=== PATIENT | male | born 1970 | race Two or more races ===

== ENCOUNTER 2020-04-16 20:02 | Inpatient (IN) | payer MEDICAID, OTHER, SELFPAY ==
[~2020-04-16] VITALS: Ht 167.6 cm; Wt 87.9 kg
[2020-04-17 00:29] LABS: Basophils # (auto) 0 10 ^3/uL (0-0.2); Basophils % (auto) 0.2 % (0.0-2.0); Eosinophils # (auto) 0 10 ^3/uL (0-0.8); Eosinophils % (auto) 0.1 % (0.0-7.0); Hematocrit 45.4 % (41.0-53.0); Hemoglobin 15.7 g/dL (13.5-17.5); Lymphocytes # (auto) 1.2 10 ^3/uL (0.4-5.4); Lymphocytes % (auto) 10.4 % (10.0-50.0); Mean Corpuscular Hemoglobin 30.7 pg (28.0-32.0); Mean Corpuscular Hgb Conc. 34.6 g/dL (32.0-36.0); Mean Corpuscular Volume 88.7 fL (80.0-100.0); Monocytes # (auto) 0.6 10 ^3/uL (0-1.3); Monocytes % (auto) 5.2 % (0.0-12.0); Neutrophils # (auto) 9.9 10 ^3/uL (1.6-8.6); Neutrophils % (auto) 84.1 % (37.0-80.0); Nucleated Red Blood Cells % 0.1 %; Red Blood Cells 5.12 10^6/uL (4.5-5.90); White Blood Cell 11.7 10^3/uL (4.4-10.8)
[2020-04-17 00:38] LABS: Alanine Aminotransferase 47 U/L (16-61); Albumin 3.2 g/dL (3.4-5.0); Anion Gap 7 (5-15); Aspartate Aminotransferase 50 U/L (15-37); BUN/Creatinine Ratio 15.9; Blood Urea Nitrogen 14 mg/dL (7-18); Calcium 8.3 mg/dL (8.5-10.1); Carbon Dioxide 28 mmol/L (21-32); Chloride 100 mmol/L (98-107); GFR African American 118 mL/min; GFR Non-African American 97 mL/min; Glucose 118 mg/dL (74-106); Potassium 3.7 mmol/L (3.5-5.1); Sodium 135 mmol/L (136-145)
[2020-04-17 00:43] LABS: Alkaline Phosphatase 96 U/L (45-117); Bilirubin, Total 0.6 mg/dL (0.2-1.0); Total Protein 8.3 g/dL (6.4-8.2)
[2020-04-17 00:44] LABS: INR 1.15 (0.9-1.15); Partial Thromboplastin Time 27.8 sec (23.0-31.2)
[2020-04-17] MEDS ORDERED: levoFLOXacin 750MG 150 ML IV ONE (04:15)
[2020-04-17] MEDS ORDERED: SODIUM CHLORIDE 0.9% 1,000 ML IV SCH (05:15)
[2020-04-17] MEDS ORDERED: ONDANSETRON HCL 4 MG/2 ML VIAL IV PRN (05:15)
[2020-04-17] MEDS ORDERED: ACETAMINOPHEN 500 MG TAB PO PRN (05:15)
[2020-04-17] MEDS ORDERED: HYDROcodone-ACET 5/325MG TAB PO PRN (05:15)
[2020-04-17] MEDS ORDERED: DOCUSATE SOD 100 MG CAP PO PRN (05:15)
[2020-04-17] MEDS ORDERED: ACETAMINOPHEN 325 MG TAB PO PRN (05:15)
[2020-04-17] MEDS: ALBUTEROL SULF HFA 90MCG INH 200DOSE IN SCH ×3 (06:00→15:29)
[2020-04-17] MEDS: ASCORBIC ACID 1,000 MG TAB PO SCH (09:11)
[2020-04-17] MEDS: ZINC SULFATE 220mg CAP or TAB PO SCH (09:12)
[2020-04-17] MEDS: DOXYCYCLINE 100 MG TAB/CAP PO SCH ×2 (09:12→21:43)
[2020-04-17] MEDS ORDERED: ENOXAPARIN SOD 40 MG/0.4 ML SYRINGE SC SCH (10:00)
[2020-04-17] MEDS ORDERED: REMDESIVIR PER PHARMACY 0 ML IV SCH (14:30)
[2020-04-17 15:45] LABS: CRP High Sensitivity 9.4 mg/dL (< 0.3)
[2020-04-17 18:02] VITALS: BP 114/77
[2020-04-17] MEDS: guaiFENesin-DM 100/10mg/5ml SYR PO PRN (18:40)
[2020-04-17] MEDS ORDERED: REMDESIVIR 200 MG in NS 210ml LOADING DOSE ADULT IV ONE (20:00)
[2020-04-17 20:25] VITALS: BP 127/75
[2020-04-17 20:40] VITALS: BP 129/67
[2020-04-17] MEDS: ENOXAPARIN SOD 40 MG/0.4 ML SYRINGE SC SCH (21:45)
[2020-04-17 22:15] VITALS: BP 127/77
[2020-04-18] VITALS: BP 131/77
[2020-04-18] MEDS: ALBUTEROL SULF HFA 90MCG INH 200DOSE IN SCH ×3 (06:00→22:00)
[2020-04-18] MEDS: guaiFENesin-DM 100/10mg/5ml SYR PO PRN (06:03)
[2020-04-18 07:36] LABS: Basophils # (auto) 0 10 ^3/uL (0-0.2); Basophils % (auto) 0.4 % (0.0-2.0); Eosinophils # (auto) 0.1 10 ^3/uL (0-0.8); Eosinophils % (auto) 1.4 % (0.0-7.0); Hematocrit 38.7 % (41.0-53.0); Hemoglobin 13.3 g/dL (13.5-17.5); Lymphocytes # (auto) 0.9 10 ^3/uL (0.4-5.4); Lymphocytes % (auto) 9.1 % (10.0-50.0); Mean Corpuscular Hemoglobin 30.7 pg (28.0-32.0); Mean Corpuscular Hgb Conc. 34.5 g/dL (32.0-36.0); Mean Corpuscular Volume 88.9 fL (80.0-100.0); Monocytes # (auto) 0.6 10 ^3/uL (0-1.3); Monocytes % (auto) 5.8 % (0.0-12.0); Neutrophils # (auto) 8.1 10 ^3/uL (1.6-8.6); Neutrophils % (auto) 83.3 % (37.0-80.0); Nucleated Red Blood Cells % 0.1 %; Red Blood Cells 4.35 10^6/uL (4.5-5.90); Red Cell Distribution Width 13.5 % (11.8-14.3); White Blood Cell 9.7 10^3/uL (4.4-10.8)
[2020-04-18 07:49] LABS: Albumin 2.3 g/dL (3.4-5.0); Calcium 8.2 mg/dL (8.5-10.1); Potassium 3.3 mmol/L (3.5-5.1)
[2020-04-18 07:54] LABS: BUN/Creatinine Ratio 20.6; Bilirubin, Total 0.6 mg/dL (0.2-1.0); Total Protein 6.8 g/dL (6.4-8.2)
[2020-04-18 08:00] VITALS: BP 114/76
[2020-04-18] MEDS: BUDESONIDE (INHALATION) 180 MCG IH IN SCH ×2 (08:40→20:10)
[2020-04-18] MEDS: DexAMETHasone SOD PHOS 10MG/1ML VIAL INJ IV SCH (10:36)
[2020-04-18] MEDS: ZINC SULFATE 220mg CAP or TAB PO SCH (10:37)
[2020-04-18] MEDS: CHOLECALCIFEROL (VITD3) 2,000 UNIT CAP/TAB PO SCH (10:37)
[2020-04-18] MEDS: DOXYCYCLINE 100 MG TAB/CAP PO SCH ×2 (10:37→22:54)
[2020-04-18] MEDS: ASCORBIC ACID 1,000 MG TAB PO SCH (10:37)
[2020-04-18] MEDS: ENOXAPARIN SOD 40 MG/0.4 ML SYRINGE SC SCH ×2 (10:38→22:54)
[2020-04-18] MEDS ORDERED: POTASSIUM EFFERVESENT TAB 25 MEQ PO SCH (12:00)
[2020-04-18] MEDS: PROMETHAZINE W/CODEINE 5 ML ORAL SYRUP PO PRN ×2 (12:40→20:09)
[2020-04-18 16:00] VITALS: BP 116/80
[2020-04-18] MEDS: REMDESIVIR 100 MG in SODIUM CHL 0.9% 250 ML IV SCH (16:17)
[2020-04-18 17:29] VITALS: BP 119/62
[2020-04-19] VITALS: BP 118/76
[2020-04-19] MEDS: PROMETHAZINE W/CODEINE 5 ML ORAL SYRUP PO PRN ×2 (05:55→21:37)
[2020-04-19] MEDS: ALBUTEROL SULF HFA 90MCG INH 200DOSE IN SCH ×3 (05:58→19:48)
[2020-04-19 08:00] VITALS: BP 116/68
[2020-04-19 08:47] LABS: Albumin 2.4 g/dL (3.4-5.0); Calcium 8.6 mg/dL (8.5-10.1); Potassium 3.6 mmol/L (3.5-5.1)
[2020-04-19 08:52] LABS: BUN/Creatinine Ratio 28.3; Bilirubin, Total 0.4 mg/dL (0.2-1.0); Total Protein 6.8 g/dL (6.4-8.2)
[2020-04-19] MEDS ORDERED: POTASSIUM CHL 20 Meq TABLET PO ONE (09:45)
[2020-04-19] MEDS ORDERED: FUROSEMIDE 20 MG/2 ML VIAL IV ONE (09:45)
[2020-04-19] MEDS: COLCHICINE 0.6 MG CAP PO SCH (10:00)
[2020-04-19] MEDS: BUDESONIDE (INHALATION) 180 MCG IH IN SCH ×2 (10:00→19:48)
[2020-04-19] MEDS: ZINC SULFATE 220mg CAP or TAB PO SCH (10:00)
[2020-04-19] MEDS: ASCORBIC ACID 1,000 MG TAB PO SCH (10:00)
[2020-04-19] MEDS: CHOLECALCIFEROL (VITD3) 2,000 UNIT CAP/TAB PO SCH (10:00)
[2020-04-19] MEDS: DOXYCYCLINE 100 MG TAB/CAP PO SCH ×2 (10:00→21:37)
[2020-04-19] MEDS: DexAMETHasone SOD PHOS 10MG/1ML VIAL INJ IV SCH (10:31)
[2020-04-19] MEDS: ENOXAPARIN SOD 40 MG/0.4 ML SYRINGE SC SCH ×2 (10:31→21:37)
[2020-04-19] MEDS: REMDESIVIR 100 MG in SODIUM CHL 0.9% 250 ML IV SCH (15:39)
[2020-04-19 16:00] VITALS: BP 101/70
[2020-04-19 17:03] VITALS: BP 109/72
[2020-04-20] VITALS: BP 106/66
[2020-04-20] MEDS: ALBUTEROL SULF HFA 90MCG INH 200DOSE IN SCH ×3 (06:06→19:24)
[2020-04-20] MEDS: PROMETHAZINE W/CODEINE 5 ML ORAL SYRUP PO PRN ×2 (06:06→12:53)
[2020-04-20] MEDS: BUDESONIDE (INHALATION) 180 MCG IH IN SCH ×2 (07:40→19:24)
[2020-04-20 07:41] LABS: Eosinophils # (auto) 0 10 ^3/uL (0-0.8); Monocytes # (auto) 0.8 10 ^3/uL (0-1.3); White Blood Cell 13.2 10^3/uL (4.4-10.8)
[2020-04-20 07:44] LABS: Basophils # (auto) 0.1 10 ^3/uL (0-0.2); Basophils % (auto) 0.4 % (0.0-2.0); Eosinophils % (auto) 0.1 % (0.0-7.0); Hematocrit 39.8 % (41.0-53.0); Hemoglobin 13.4 g/dL (13.5-17.5); Lymphocytes # (auto) 1.2 10 ^3/uL (0.4-5.4); Lymphocytes % (auto) 8.7 % (10.0-50.0); Mean Corpuscular Hemoglobin 30.2 pg (28.0-32.0); Mean Corpuscular Hgb Conc. 33.7 g/dL (32.0-36.0); Mean Corpuscular Volume 89.7 fL (80.0-100.0); Monocytes % (auto) 6.1 % (0.0-12.0); Neutrophils # (auto) 11.2 10 ^3/uL (1.6-8.6); Neutrophils % (auto) 84.7 % (37.0-80.0); Red Blood Cells 4.44 10^6/uL (4.5-5.90); Red Cell Distribution Width 13.3 % (11.8-14.3)
[2020-04-20 07:57] LABS: Albumin 2.4 g/dL (3.4-5.0); Bilirubin, Total 0.4 mg/dL (0.2-1.0); Calcium 8.2 mg/dL (8.5-10.1); Magnesium 2.3 mg/dL (1.6-2.6); Potassium 3.8 mmol/L (3.5-5.1); Total Protein 6.8 g/dL (6.4-8.2)
[2020-04-20 08:00] VITALS: BP 111/74
[2020-04-20] MEDS: DexAMETHasone SOD PHOS 10MG/1ML VIAL INJ IV SCH (08:56)
[2020-04-20] MEDS: FUROSEMIDE 20 MG/2 ML VIAL IV SCH (08:56)
[2020-04-20] MEDS: ZINC SULFATE 220mg CAP or TAB PO SCH (08:57)
[2020-04-20] MEDS: COLCHICINE 0.6 MG CAP PO SCH (08:58)
[2020-04-20] MEDS: POTASSIUM EFFERVESENT TAB 25 MEQ PO SCH (08:58)
[2020-04-20] MEDS: DOXYCYCLINE 100 MG TAB/CAP PO SCH ×2 (08:59→22:00)
[2020-04-20] MEDS: ASCORBIC ACID 1,000 MG TAB PO SCH (08:59)
[2020-04-20] MEDS: CHOLECALCIFEROL (VITD3) 2,000 UNIT CAP/TAB PO SCH (09:00)
[2020-04-20] MEDS: ENOXAPARIN SOD 40 MG/0.4 ML SYRINGE SC SCH ×2 (09:01→22:00)
[2020-04-20] MEDS: REMDESIVIR 100 MG in SODIUM CHL 0.9% 250 ML IV SCH (14:51)
[2020-04-20 15:50] VITALS: BP 108/70
[2020-04-20 16:00] VITALS: BP 108/70
[2020-04-20] MEDS ORDERED: diphenhdrAMINE HCL 50 MG/1 ML VL IV PRN (20:15)
[2020-04-20] MEDS: FAMOTIDINE (10MG/ML) 2ML VL IV SCH (22:00)
[2020-04-20] MEDS ORDERED: cefTRIAXone 1GM/50ML D5W 50 ML IV ONE (22:30)
[2020-04-21 00:30] VITALS: BP 104/63
[2020-04-21] MEDS: ALBUTEROL SULF HFA 90MCG INH 200DOSE IN SCH ×3 (06:00→19:31)
[2020-04-21 06:59] LABS: Basophils # (auto) 0 10 ^3/uL (0-0.2); Basophils % (auto) 0.2 % (0.0-2.0); Eosinophils # (auto) 0 10 ^3/uL (0-0.8); Eosinophils % (auto) 0.2 % (0.0-7.0); Hemoglobin 13.7 g/dL (13.5-17.5); Mean Corpuscular Hemoglobin 30.4 pg (28.0-32.0); Monocytes # (auto) 0.9 10 ^3/uL (0-1.3); Neutrophils # (auto) 10.6 10 ^3/uL (1.6-8.6)
[2020-04-21 07:00] LABS: Hematocrit 40.3 % (41.0-53.0); Lymphocytes # (auto) 1.3 10 ^3/uL (0.4-5.4); Lymphocytes % (auto) 10.3 % (10.0-50.0); Mean Corpuscular Hgb Conc. 34.1 g/dL (32.0-36.0); Neutrophils % (auto) 82.3 % (37.0-80.0); Red Blood Cells 4.52 10^6/uL (4.5-5.90); Red Cell Distribution Width 13.5 % (11.8-14.3); White Blood Cell 12.9 10^3/uL (4.4-10.8)
[2020-04-21 07:36] LABS: Potassium 4.3 mmol/L (3.5-5.1)
[2020-04-21 07:54] LABS: Albumin 2.4 g/dL (3.4-5.0); Bilirubin, Total 0.3 mg/dL (0.2-1.0); CRP High Sensitivity 1.51 mg/dL (< 0.3); Calcium 8.5 mg/dL (8.5-10.1); Total Protein 6.7 g/dL (6.4-8.2)
[2020-04-21 08:00] VITALS: BP 108/70
[2020-04-21] MEDS: COLCHICINE 0.6 MG CAP PO SCH (09:39)
[2020-04-21] MEDS: ASCORBIC ACID 1,000 MG TAB PO SCH (09:39)
[2020-04-21] MEDS: POTASSIUM EFFERVESENT TAB 25 MEQ PO SCH (09:40)
[2020-04-21] MEDS: ZINC SULFATE 220mg CAP or TAB PO SCH (09:40)
[2020-04-21] MEDS: DOXYCYCLINE 100 MG TAB/CAP PO SCH ×2 (09:40→22:16)
[2020-04-21] MEDS: CHOLECALCIFEROL (VITD3) 2,000 UNIT CAP/TAB PO SCH (09:40)
[2020-04-21] MEDS: ENOXAPARIN SOD 40 MG/0.4 ML SYRINGE SC SCH ×2 (09:41→22:16)
[2020-04-21] MEDS: FAMOTIDINE (10MG/ML) 2ML VL IV SCH ×2 (09:42→22:16)
[2020-04-21] MEDS: DexAMETHasone SOD PHOS 10MG/1ML VIAL INJ IV SCH (09:42)
[2020-04-21] MEDS: PROMETHAZINE W/CODEINE 5 ML ORAL SYRUP PO PRN ×2 (09:48→20:24)
[2020-04-21] MEDS: FUROSEMIDE 20 MG/2 ML VIAL IV SCH (10:00)
[2020-04-21] MEDS: BUDESONIDE (INHALATION) 180 MCG IH IN SCH ×2 (10:00→19:31)
[2020-04-21] MEDS: REMDESIVIR 100 MG in SODIUM CHL 0.9% 250 ML IV SCH (14:50)
[2020-04-21 16:00] VITALS: BP 105/74
[2020-04-21] MEDS: cefTRIAXone 1GM/50ML D5W 50 ML IV SCH (20:23)
[2020-04-22] VITALS: BP 97/52
[2020-04-22] MEDS: PROMETHAZINE W/CODEINE 5 ML ORAL SYRUP PO PRN ×3 (05:14→21:26)
[2020-04-22] MEDS: ALBUTEROL SULF HFA 90MCG INH 200DOSE IN SCH ×3 (07:10→19:10)
[2020-04-22 07:44] LABS: Potassium 3.8 mmol/L (3.5-5.1)
[2020-04-22 07:53] LABS: Albumin 2.5 g/dL (3.4-5.0); BUN/Creatinine Ratio 34.5; Bilirubin, Total 0.3 mg/dL (0.2-1.0); Calcium 8.2 mg/dL (8.5-10.1); Total Protein 6.4 g/dL (6.4-8.2)
[2020-04-22 08:00] VITALS: BP 95/62
[2020-04-22] MEDS: FUROSEMIDE 20 MG/2 ML VIAL IV SCH (10:00)
[2020-04-22] MEDS: BUDESONIDE (INHALATION) 180 MCG IH IN SCH ×2 (11:22→19:10)
[2020-04-22] MEDS: FAMOTIDINE (10MG/ML) 2ML VL IV SCH ×2 (11:22→22:00)
[2020-04-22] MEDS: DexAMETHasone SOD PHOS 10MG/1ML VIAL INJ IV SCH (11:22)
[2020-04-22] MEDS: ZINC SULFATE 220mg CAP or TAB PO SCH (11:22)
[2020-04-22] MEDS: COLCHICINE 0.6 MG CAP PO SCH (11:23)
[2020-04-22] MEDS: POTASSIUM EFFERVESENT TAB 25 MEQ PO SCH (11:23)
[2020-04-22] MEDS: CHOLECALCIFEROL (VITD3) 2,000 UNIT CAP/TAB PO SCH (11:23)
[2020-04-22] MEDS: ASCORBIC ACID 1,000 MG TAB PO SCH (11:23)
[2020-04-22] MEDS: ENOXAPARIN SOD 40 MG/0.4 ML SYRINGE SC SCH ×2 (11:23→21:26)
[2020-04-22 16:00] VITALS: BP 99/52
[2020-04-22] MEDS: cefTRIAXone 1GM/50ML D5W 50 ML IV SCH (21:26)
[2020-04-23] VITALS: BP 112/71
[2020-04-23] MEDS: ALBUTEROL SULF HFA 90MCG INH 200DOSE IN SCH ×2 (06:25→14:00)
[2020-04-23] MEDS: BUDESONIDE (INHALATION) 180 MCG IH IN SCH (06:25)
[2020-04-23 08:00] VITALS: BP 102/66
[2020-04-23] MEDS: FAMOTIDINE (10MG/ML) 2ML VL IV SCH (10:00)
[2020-04-23] MEDS: ZINC SULFATE 220mg CAP or TAB PO SCH (10:22)
[2020-04-23] MEDS: DexAMETHasone SOD PHOS 10MG/1ML VIAL INJ IV SCH (10:22)
[2020-04-23] MEDS: POTASSIUM EFFERVESENT TAB 25 MEQ PO SCH (10:23)
[2020-04-23] MEDS: CHOLECALCIFEROL (VITD3) 2,000 UNIT CAP/TAB PO SCH (10:23)
[2020-04-23] MEDS: ASCORBIC ACID 1,000 MG TAB PO SCH (10:23)
[2020-04-23] MEDS: COLCHICINE 0.6 MG CAP PO SCH (10:23)
[2020-04-23] MEDS: ENOXAPARIN SOD 40 MG/0.4 ML SYRINGE SC SCH (10:24)
[2020-04-23] MEDS ORDERED: FUROSEMIDE 40 MG/4 ML VIAL IV SCH (10:25)
[2020-04-23 15:52] VITALS: BP 114/71
[2020-04-23 16:00] VITALS: BP 114/71
== END 2020-04-23 20:25 | disposition home or self-care (01) | DRG 720 ==
LOC: ER 20:06 → OVERFLOW 20:07 → TELE-WESTW 04-17 17:33 → WEST WING 04-20 06:47
PROVIDERS: ADMIT Hospitalist; ATTEND Internal Medicine Nephrology
PROC: XW033E5 Introduction of Remdesivir Anti-infective into Peripheral Vein, Percutaneous Approach, New Technology Group 5 (ICD-10-PCS; principal; 2020-04-17)
DX: A41.89 Other specified sepsis (principal); J12.82 Pneumonia due to coronavirus disease 2019; J96.01 Acute respiratory failure with hypoxia; U07.1 COVID-19; D68.59 Other primary thrombophilia; E66.9 Obesity, unspecified; R65.20 Severe sepsis without septic shock; Z68.33 Body mass index [BMI] 33.0-33.9, adult; D89.839 Cytokine release syndrome, grade unspecified
CPT/HCPCS: 36415; 36600; 71045; 80053; 82728; 82805; 83615; 83735; 83880; 84443; 84484; 85025; 85379; 85610; 85730; 86141; 86850; 86900; 86901; 87040; 87426; 93005; 94640; G0378; J0696; J1100; J1956; J3490